=== PATIENT | female | born 2000 | race Caucasian/White ===

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

== ENCOUNTER → 2019-08-21 | Outpatient (CLI) | payer OTHER | END | disposition home or self-care (01) | LOC: RAD 11:14 | DX: M54.2 Cervicalgia (principal); M54.6 Pain in thoracic spine; M54.5 Low back pain ==

== ENCOUNTER 2021-06-15 08:00 | Outpatient (CLI) | payer OTHER | END 2021-06-15 08:30 | disposition home or self-care (01) | LOC: PPH VACUNA 08:00 | DX: Z23 Encounter for immunization (principal) ==

== ENCOUNTER 2021-07-06 08:00 | Outpatient (CLI) | payer OTHER | END 2021-07-06 08:05 | disposition home or self-care (01) | LOC: PPH VACUNA 08:00 | PROVIDERS: ATTEND Emergency Medicine Pediatric Emergency Medicine | DX: Z23 Encounter for immunization (principal) ==

== ENCOUNTER 2021-12-27 08:00 | Outpatient (CLI) | payer OTHER | END 2021-12-27 08:30 | disposition home or self-care (01) | LOC: PPH VACUNA 08:00 | PROVIDERS: ATTEND Emergency Medicine Pediatric Emergency Medicine | DX: Z23 Encounter for immunization (principal) ==

== ENCOUNTER 2021-12-27 08:36 | Outpatient (CLI) | payer OTHER | END 2021-12-27 09:00 | disposition home or self-care (01) | LOC: RAD 08:36 | PROVIDERS: ATTEND Radiology Diagnostic Radiology | DX: M54.16 Radiculopathy, lumbar region (principal) ==

== ENCOUNTER 2022-05-10 11:13 | Outpatient (CLI) | payer OTHER | END 2022-05-10 15:31 | disposition home or self-care (01) | LOC: SONOGRAMA 11:13 | PROVIDERS: ATTEND Internal Medicine Cardiovascular Disease | DX: I10 Essential (primary) hypertension (principal); N94.6 Dysmenorrhea, unspecified ==

== ENCOUNTER 2024-08-09 09:55 | Outpatient (CLI) | payer OTHER | END 2024-08-09 10:20 | disposition home or self-care (01) | LOC: TOM 09:55 | PROVIDERS: ATTEND Radiology Diagnostic Radiology | DX: R51.9 Headache, unspecified (principal) ==

== ENCOUNTER 2025-09-14 10:28 | Outpatient (CLI) | payer OTHER | END 2025-09-14 16:10 | disposition home or self-care (01) | LOC: MRI 10:28 | PROVIDERS: ATTEND Internal Medicine | DX: R51.9 Headache, unspecified (principal) | CPT/HCPCS: 70551 ==